=== PATIENT | male | born 1935 | race Caucasian/White ===

== ENCOUNTER 2024-11-02 12:29 | Outpatient (CLI) | payer OTHER, SELFPAY ==
[2024-11-02] VITALS (7 sets, daily range): BP systolic 145–196; BP diastolic 93–117; PULSE 102–117; RESP 18–25; TEMP 36.6; O2SAT 96–98
[2024-11-02] MEDS: Dexamethasone Sod. Phos./Pres-Free 10 MG/ML VIAL IJ (13:11)
[2024-11-02] MEDS: Omnipaque 240 MG/ML 50 ML BTL IJ (13:11)
[2024-11-02] MEDS: Nerve Block Tray 1 EACH MC (13:12)
--- NOTE | 2024-11-02 13:19 | DI.RAD_ITS ---
Exam(s) XR PAIN CLINIC LUMBAR SP 2V EXAM: XR PAIN CLINIC LUMBAR SP 2V CLINICAL HISTORY: Dx: Lumbar Radiculopathy TECHNIQUE: 2D and realtime digital imaging was performed. CONTRAST MATERIAL: Refer to procedure report. COMPARISON: No exams were available for comparison FINDINGS: Fluoroscopy was provided for Dr. Donahue during the performance of a transforaminal epidural steroid in [facility]. Please refer to the procedure report for complete details. Ka,r=25.5 mGy IMPRESSION: RADIATION DOSE DELIVERED: 0.0 0.0 0
--- NOTE | 2024-11-02 14:40 | PDOC.PAIN_ITS ---
Date of service: 11/02/24 Time of Service: 14:40 Pain Managment Procedure Note Procedure Note Procedure Note: PROCEDURE NOTE BILATERAL LUMBAR RADIOFREQUENCY ABLATION Date of Service: November 02, 2024 Patient:Conner Ferrera? Provider:? Ever Navarro DO, MPH Conner Elena has [facility] Bilateral Lumbar Radiofrequency Ablation with the [employer] Vapors Machine.? 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 His pain has returned. PROCEDURE: Radiofrequency Ablation of medial branches - bilateral L3, L4, L5 and lateral branches of bilateral S1. Conner?was interviewed and the medical record was reviewed.? There were no medical, pharmacologic, radiographic or other structural contraindications to attempting fluoroscopically guided BILATERAL Lumbar Radiofrequency Ablation.?Risks and expected side effects as well as potential benefit of the procedure were reviewed with Conner, and the patient's voiced concerns were addressed.? The printed consent form was signed.? Standard time-out procedure was performed. Conner was brought into the fluoroscopy suite and positioned into the prone position on the fluoroscopy table and allowed to adjust to a position of comfort. A grounding pad was placed on the left abdomen. The sterile field was prepared using chlorhexidine preparation of the skin and sterile draping. Local anesthesia superficial and deep was provided by local infiltration of 2% lidocaine. A 17g 100 mm radiofrequency introducer needle was placed to the planned anatomic targets guided with intermittent fluoroscopy with a perpendicular approach to terminally place at the junction of the superior articular process and the transverse process of the bilateral L4, L5, the base of the sacral ala on the bilateral for the L5 medial branch nerve and the area between base of the sacral ala to the S1 foramen bilaterally. The stylets were removed and radiofrequency probes with a 4mm active tip were then inserted. Needle tip position of the probes was verified in the AP, oblique, and lateral views. At each site, the medial branch nerve was stimulated at 2 Hz to a maximum 1-2 volts determined to finalize safe needle and electrode placement. The patient was awake and responsive during this portion of the procedure. Each target was anesthetized with 1-2 mL of 2 % Lidocaine for anesthesia for lesioning and then each target was lesioned at 80 degrees Celsius for 2 minutes and 30 seconds. Tissue impedances were noted to be between 250 and 500 Ohms. There was no unusual discomfort expressed by Conner. The needles were withdrawn without difficulty and bandages placed over the needle placement sites, the patient was observed and was without hemodynamic, neurologic, or allergic reactions. Fluoroscopic images were digitally archived. POST PROCEDURE EVALUATION: IMPRESSION: 1. Summary of procedure. Medication given is documented in the MAR. 2. Follow up plan: Conner to contact [facility] as needed.?This procedure may be repeated if the patient achieves at least 50% improvement in pain/function for at least 6 months. 3. Estimated Blood Loss: <5 mls 4. Fluoroscopy time: Documented in the EMR. Follow up plans and appointments were discussed with the Conner. Post procedure instruction was given as documented in nursing documentation and having met discharge criteria, Conner was discharged from the [facility]. This advanced procedure uses cooled radiofrequency energy to safely target the sensory nerves responsible for sending pain signals.1 A radiofrequency generator transmits a small current of Radiofrequency energy through an insulated electrode, or probe, placed within tissue. Ionic heating, produced by the friction of charged molecules, thermally deactivates the nerves responsible for sending pain signals to the brain. Radiofrequency energy heats and cools the tissue at the site of pain. Unlike other Radiofrequency procedures, Coolief circulates water through the device while heating nervous tissue to create a larger treatment area, increasing the opportunity to help with pain. This combination targets the pain- transmitting nerves without excessive heating, leading to pain relief. COMMENTS: No apparent complications. Post-procedure pain: VAS= 1/10. I personally completed the entire procedure. EVER NAVARRO DO, MPH ABPM&R - Subspecialty board certification in Pain Medicine [facility]
== END 2024-11-02 12:30 | disposition home or self-care (01) ==
PROVIDERS: PCP Internal Medicine; Visit Provider Preventive Medicine Occupational Medicine
DX: M54.17 Radiculopathy, lumbosacral region (principal); M54.50 Low back pain, unspecified
CPT/HCPCS: 64483; 72100; J1100; Q9967

== ENCOUNTER 2024-12-21 08:51 | Outpatient (CLI) | payer OTHER, SELFPAY ==
--- NOTE | 2024-12-21 06:00 | DI.RAD_ITS ---
Exam(s) XR PAIN CLINIC LUMBAR SP 2V EXAM: XR PAIN CLINIC LUMBAR SP 2V CLINICAL HISTORY: Dx: Lumbar Radiculopathy TECHNIQUE: 2D and realtime digital imaging was performed. CONTRAST MATERIAL: Refer to procedure report. COMPARISON: No exams were available for comparison FINDINGS: Fluoroscopy was provided for Dr. Coppola during the performance of a lumbar epidural steroid injecti on. Please refer to the procedure report for complete details. Ka,r=4.78 mGy IMPRESSION: RADIATION DOSE DELIVERED: 0.0 0.0 0
[2024-12-21 09:25] VITALS: BP 156/93; PULSE 104; RESP 20; TEMP 36.7; O2SAT 99
[2024-12-21 09:55] VITALS: PULSE 101; PULSE 99; O2SAT 98
[2024-12-21 09:56] VITALS: BP 196/113; PULSE 102; RESP 22; O2SAT 97
[2024-12-21 10:00] VITALS: PULSE 98; RESP 19; O2SAT 97
[2024-12-21 10:01] VITALS: BP 191/119; PULSE 98; RESP 21; O2SAT 97
[2024-12-21 10:04] VITALS: BP 149/82; PULSE 102
[2024-12-21] MEDS: methylPREDNISolone ACETATE 80 MG/ML VIAL IJ (10:08)
[2024-12-21] MEDS: Epidural Tray 1 EACH MC (10:08)
[2024-12-21] MEDS: Omnipaque 240 MG/ML 50 ML BTL IJ (10:08)
--- NOTE | 2024-12-21 10:24 | PDOC.PAIN_ITS ---
Date of service: 12/21/24 Time of Service: 10:24 Pain Managment Procedure Note Procedure Note Procedure Note: PROCEDURE NOTE LUMBAR EPIDURAL STEROID INJECTION Date of Service: December 21, 2024 Patient:Conner Sepulveda? Provider: Ever Donahue DO, MPH Conner Elena has been referred to the [facility] for a lumbar epidural steroid injection. Pre-operative diagnosis: Lumbosacral Radiculopathy ICD-10 M54.16 Post-operative diagnosis: Same Pre-Procedure Pain: VAS= 5 /10 Comments: Previously evaluated in our clinic. No major changes. Conner was interviewed and the medical record was reviewed.? There were no medical, pharmacologic, radiographic or other structural contraindications to attempting fluoroscopically guided Lumbar epidural steroid injection.? Risks, potential side effects, indications, and potential benefits of the procedure were reviewed with Conner.? Questions and concerns were addressed.? After it was clear that Conner was fully informed about the procedure, the printed consent form was signed by the patient and myself.? Conner was placed in the prone position on the fluoroscopy table and automated blood pressure cuff and pulse oximeter applied. The skin entry point for entering/approaching the epidural space for the lumbar epidural steroid injection was marked. Following thorough chlorhexadine preparation of the skin and draping and 1% lidocaine infiltration of the skin entry point and subcutaneous tissues, an 18 gauge Touhy needle was placed and advanced under fluoroscopic guidance and with loss of resistance technique into the L5-S1 epidural space. Needle tip placement and depth were aided and confirmed by fluoroscopy. There was no paresthesia or return of blood or CSF through the needle. 1 mls of Omnipaque 240 was injected with clear epidural spread confirmed with fluoroscopy. 80 mg of Depo-Medrol was? injected. This was followed by 1 ml of preservative-free normal saline to flush the steroid out of the needle. There was no unusual discomfort expressed by Conner. The needle was withdrawn without difficulty. (49 mls of Omnipaque was wasted) Conner was observed and was without hemodynamic, neurologic, or allergic reactions.? Fluoroscopic images were digitally archived. Conner's vital signs were stable throughout the procedure and were as recorded in nursing records. Follow up plans and appointments were discussed with Conner. Post procedure instruction was given as documented in nursing records and having met discharge criteria Conner was discharged from the [facility]. COMMENTS: No apparent complications. Post-procedure pain: VAS= 0/10. Conner to contact [facility] as needed. If at least 50% improvement in pain and/or function for at least 3 months is achieved, this procedure can be repeated. I personally performed this entire procedure. EVER DONAHUE DO, MPH ABPMR-subspecialty board certification in Pain Medicine [facility] Coding Conscious Sedation used for procedure: No CPT Codes: Inj Spine L/S w/Imaging - [id number] ([id number] ~G) Additional Codes: Date of Service (30281) Date of service: 12/21/24
== END 2024-12-21 08:52 | disposition home or self-care (01) ==
PROVIDERS: PCP Internal Medicine; Visit Provider Preventive Medicine Occupational Medicine
DX: M54.16 Radiculopathy, lumbar region (principal)
CPT/HCPCS: 62323; 72100; J1010; Q9967

== ENCOUNTER 2025-01-03 17:03 | Emergency (ER) | payer OTHER, SELFPAY ==
[2025-01-03] VITALS (33 sets, daily range): BP systolic 97–186; BP diastolic 52–100; PULSE 65–90; RESP 13–28; TEMP 36.6; O2SAT 93–100
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
[2025-01-03 17:34] LABS: Abs Immature Grans 0.26 10^3/uL (0.0-0.06); Absolute Eosinophil Count 0.03 10^3/uL (0.0-0.7); Absolute Lymphocyte Count 1.05 10^3/uL (1.2-3.4); Absolute Monocyte Count 0.97 10^3/uL (0.1-0.8); Basophils % 0.8 %; Eosinophils % 0.2 %; HCT 51.9 % (40.0-50.0); HGB 17.4 g/dL (13.5-17.5); Lymphocytes % 8.3 %; MCH 31.4 pg (27.0-33.0); MCHC 33.5 % (32.0-36.0); MCV 94 fL (80-95); MPV 9.2 fL (8.0-11.0); Monocytes % 7.6 %; Neutrophils % 81.1 %; Platelet Count 192 10^3/uL (130-400); RBC 5.55 10^6/uL (4.36-5.78); RDW 12.5 % (11.8-14.1); RDW-SD 43.3 fL
[2025-01-03] MEDS: ACETAMINOPHEN 1,000 MG/100 ML BAG 400 MG IVPB (17:38)
[2025-01-03 17:49] LABS: INR 1.1 (0.9-1.1); Prothrombin Time 11.2 sec (9.1-11.1)
[2025-01-03 17:51] LABS: PTT Activated 22.6 sec (20.6-30.2)
[2025-01-03 17:53] LABS: Amylase 73 U/L (25-115)
[2025-01-03 18:02] LABS: ALT 67 U/L (16-63); AST 37 U/L (15-37); Albumin 4.1 g/dL (3.4-5.0); Alkaline Phosphatase 89 U/L (46-116); Anion Gap 11.6 mmol/L (3-11); BUN 26 mg/dL (7-18); Bilirubin, Total 0.8 mg/dL (0.2-1.0); CO2 24.4 mmol/L (21.0-32.0); CREATININE 1.4 mg/dL (0.70-1.30); Calcium 9.4 mg/dL (8.5-10.1); Chloride 105 mmol/L (98-107); Estimated GFR 48.34 (mL/min/1.73m2); Glucose 176 mg/dL (74-106); Lipase 38 U/L (<78); Magnesium 2.4 mg/dL; NT-proBNP 59 pg/mL (<300); Potassium 5.1 mmol/L (3.5-5.1); Sodium 141 mmol/L (136-145); Total Protein 7.8 g/dL (6.4-8.2); Troponin I 8 ng/L (<or=76)
[2025-01-03 18:04] LABS: ETHANOL BLOOD < 3.0 mg/dL (<10)
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
[2025-01-03 20:01] LABS: Troponin I 13 ng/L (<or=76)
[2025-01-03 20:17] LABS: Bilirubin Negative (Negative); Blood Trace-intact (Negative); Clarity Clear (Clear); Glucose >=1000 mg/dL (Negative); Ketones Negative (Negative); Leukocyte Esterase Negative (Negative); Nitrite Negative (Negative); Specific Gravity 1.015 (1.005-1.025); Urobilinogen 0.2 mg/dL (Up to 0.2); pH 5.5 (5-8)
[2025-01-03 20:23] LABS: Bacteria Negative HPF (Negative); Casts 0-2 Hyaline LPF (Negative); Crystals Negative HPF (Negative); Epithelial Cells Negative HPF (Negative); Mucus Trace (Negative); WBC 0-2 HPF (0-5)
[2025-01-03 20:24] LABS: C & S Indicated? No
== END 2025-01-03 21:05 | disposition short-term general hospital (02) ==
PROVIDERS: Emergency Provider Physician Assistant; PCP Internal Medicine
DX: S22.081A Stable burst fracture of T11-T12 vertebra, initial encounter for closed fracture (principal); S22.31XA Fracture of one rib, right side, initial encounter for closed fracture; S00.03XA Contusion of scalp, initial encounter; S51.001A Unspecified open wound of right elbow, initial encounter; E11.9 Type 2 diabetes mellitus without complications; I25.2 Old myocardial infarction; I10 Essential (primary) hypertension; E78.5 Hyperlipidemia, unspecified; Z79.82 Long term (current) use of aspirin; Z79.84 Long term (current) use of oral hypoglycemic drugs; Z98.1 Arthrodesis status; V48.5XXA Car driver injured in noncollision transport accident in traffic accident, initial encounter
CPT/HCPCS: 74177; 80053; 82962; 83690; 93005; 96375; 99285; 70450; 71260; 72125; 72128; 72131; 73080; 73590; 80320; 81003; 81015; 82150; 83735; 83880; 84484; 85025; 85610; 85730; 93010; J0131

== ENCOUNTER 2025-06-20 10:35 | Outpatient (CLI) | payer OTHER, SELFPAY ==
[2025-06-20 11:05] VITALS: BP 148/91; PULSE 99; RESP 18; TEMP 36.5; O2SAT 96
--- NOTE | 2025-06-20 11:32 | PDOC.PAIN ---
Date of service: 06/20/25 Time of Service: 11:54 Pain Managment Procedure Note Procedure Note Procedure Note: Lumbar Interlaminar Epidural Steroid Injection ? Location: L5-S1 ? Pre-procedure Diagnosis: M54.16- Radiculopathy, LUMBAR region ? Post-procedure Diagnosis:? The same as above ? Sedation:? 2mg of intravenous midazolam was administered.? An independent trained observer monitored the patient for the duration of the procedure.? None ? Medication: Depo-Medrol 80 mg, Omnipaque 1 mL ? Estimated blood loss:? less than 2 cc ? Surgeon:? Collin Coppola MD COMMENT: Patient has spinal stenosis at L4-5. He has had multiple steroid injections both at [facility] which were transforaminal steroid injections at L4 and here with Dr. Donahue first a bilateral L4 transforaminal steroid injection and then a interlaminar at L5-S1 which worked better than the transforaminal ? Procedure Detail:? The procedure and potential risks were explained to the patient and informed written consent was obtained. The patient was escorted to the procedure room and placed in the prone position. Pillows were utilized for proper positioning and comfort. Time out was performed in the procedure room with nursing staff confirming the patient's identity, procedure to be performed, allergies, and any blood thinning or anti-platelet medications.? The patient's neck and upper back was prepped with ChloraPrep and draped in a sterile fashion. Sterile technique was maintained throughout the procedure.? Sterile gloves were used, a face mask was worn, and new single dose vials of all medications were used with the top being swabbed with alcohol and given time to dry prior to withdrawal of medication. Lidocane 1% was used to anesthetize the skin.Using a 25-gauge 1.5 inch needle, 1% lidocaine was instilled into the superficial soft tissue overlying the targeted area to provide local anesthesia. With fluoroscopic guidance, a 17 -gauge Tuohy needle was advanced toward the interlaminar space of L5-S1. The needle was then advance through the ligamentum flavum and into the posterior epidural space using the loss of resistance technique. Correct needle placement was confirmed through review of the AP and contralateral oblique fluoroscopic views. A 19-gauge arrow catheter was threaded cephalad and to the Right Following negative aspiration, one cc of Omnipaque 240 contrast was injected which confirmed good flow throughout the epidural space and no evidence of vascular flow or flow into adjacent compartments. Next, following negative aspiration, 1 cc's of normal saline and 80mg of Depo-Medrol was injected. The needle was gently removed. The patient tolerated the procedure well and was transported to the recovery area for observation and discharge instructions. Permanent images saved and recorded. PAIN PRE-PROCEDURE 10 POST-PROCEDURE 0/10 Plan:? Follow up prn. COMMENT: repeat if gets good relief for several months Coding Conscious Sedation used for procedure: No CPT Codes: Inj Spine L/S w/Imaging - 53485 ([id number] ~G) Additional Codes: Date of Service (84291) Date of service: 06/20/25 Diagnoses: M54.16- Radiculopathy, LUMBAR region
[2025-06-20 11:35] VITALS: PULSE 109; O2SAT 98
[2025-06-20 11:40] VITALS: PULSE 105; O2SAT 97
--- NOTE | 2025-06-20 11:55 | DI.RAD_ITS ---
Exam(s) XR PAIN CLINIC LUMBAR SP 2V EXAM: XR PAIN CLINIC LUMBAR SP 2V CLINICAL HISTORY: Dx: Lumbar Radiculopathy TECHNIQUE: 2D and realtime digital imaging was performed. CONTRAST MATERIAL: Refer to procedure report. COMPARISON: No exams were available for comparison FINDINGS: Fluoroscopy was provided for Dr. Coppola during the performance of a lumbar epidural steroid injection. Please refer to the procedure report for complete details. Ka,r=8.58 mGy IMPRESSION: RADIATION DOSE DELIVERED: 0.0 0.0 0
[2025-06-20] MEDS: Epidural Tray 1 EACH MC (11:56)
[2025-06-20] MEDS: Omnipaque 240 MG/ML 50 ML BTL IJ (11:56)
[2025-06-20] MEDS: methylPREDNISolone ACETATE 40 MG/ML VIAL IJ (11:56)
== END 2025-06-20 10:36 | disposition home or self-care (01) ==
LOC: PC 10:36
PROVIDERS: PCP Internal Medicine; Visit Provider Anesthesiology Pain Medicine
DX: M54.16 Radiculopathy, lumbar region (principal)
CPT/HCPCS: 62323; 72100; J1010; Q9967